=== PATIENT | female | born 2000 | race Caucasian/White ===

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

== ENCOUNTER → 2019-10-19 | Outpatient (CLI) | payer OTHER ==
[~2019-10-19] MED LIST changes: +Magnesium Citr296 ML PO; +TOPI50 PO
== END | disposition home or self-care (01) ==
LOC: LAB SHORT 10:31 → LAB EV 10:31
DX: J06.9 Acute upper respiratory infection, unspecified (principal)
CPT/HCPCS: 87081

== ENCOUNTER 2022-11-12 00:50 | Day surgery (SDC) | payer OTHER | END 2022-11-12 10:51 | disposition home or self-care (01) | LOC: ATC 00:50 | DX: R00.0 Tachycardia, unspecified (principal) | CPT/HCPCS: 36415; 80400; 82533; 96372; J0834 ==

== ENCOUNTER → 2023-04-16 | Outpatient (CLI) | payer OTHER ==
[2023-04-17 22:08] LABS: HIV AB/P24 AG SCREEN Non Reactive (Non Reactive)
== END | disposition home or self-care (01) ==
LOC: LAB SHORT 14:41 → LAB 14:41
PROVIDERS: Family Medicine
DX: Z11.4 Encounter for screening for human immunodeficiency virus [HIV] (principal)
CPT/HCPCS: 87389

== ENCOUNTER 2023-06-24 16:43 | Emergency (ER) | payer OTHER ==
[~2023-06-24] VITALS: Ht 167.6 cm; Wt 56.7 kg
[2023-06-24 16:56] VITALS: BP 138/107
== END 2023-06-24 20:01 | disposition home or self-care (01) ==
LOC: ER 16:43
DX: S05.01XA Injury of conjunctiva and corneal abrasion without foreign body, right eye, initial encounter (principal); W22.8XXA Striking against or struck by other objects, initial encounter
CPT/HCPCS: 99283; A9270